=== PATIENT | female | born 1960 | race Hispanic/Latino ===

== ENCOUNTER 2016-09-24 10:25 | Emergency (ER) | payer OTHER ==
[~2016-09-24] VITALS: Ht 157.5 cm; Wt 63.5 kg
[~2016-09-24 10:25] MED LIST: ALBUTEROL0.09 MG/A1 INH; CRESTOR20 M2 PO; FIORICET 325 MG1 TAB PO; GUAIFENESIN-COD10 ML PO; GYNE-LOTRIMIN1% VAG; IMITREX50 MG PO; LAMICTAL 100MG100 MG PO; LAMOTRIGINE25 MG PO; MEDROL DOSEPAK1 PAC PO; MEDROL4 M2 PO; MULTIVITAMIN1 TAB PO; NAPROXEN500 MG PO; NASONEX0.05 MG/Ac NAS; NIFEDIPINE ER30 M2 PO; PANTOPRAZOLE SO40 MG PO; PROAIR HFA0.09 MG/Ac INH; PROAIR HFA8.5 GM INH; TESSALON PERLE100 MG PO; TOPIRAMATE25 MG PO; TRIAMCINOL0.1 %/453 TOP; TYLENOL #31 TAB PO; VICODIN5-300 PO; VITAMIN B121000 MC2 PO; ZITHROMAX Z-PA250 M1 PO; ZOFRAN ODT4 MG PO
[2016-09-24] MEDS ORDERED: TOPIRAMATE100 M2 PO (11:23)
--- NOTE | 2016-09-24 11:23 | ED INFLUENZA/URI COMPLAINT ---
History of Present Illness General Chief Complaint: Upper Respiratory Sx/Fever Stated Complaint: URI Source: patient, old records Exam Limitations: no limitations Vital Signs & Intake/Output Vital Signs & Intake/Output Vital Signs Date Time Temp Pulse Resp B/P Pulse O2 O2 Flow FiO2 Ox Delivery Rate 09/24 1120 Room Air 09/24 1032 97.9 99 18 144/87 98 Room Air Allergies Coded Allergies: lorazepam (Severe, PASSED OUT 12/19/15) Reconcile Medications Acetaminophen/Butalbital/Caf (Fioricet 325 MG-50 MG-40 MG) 1 TAB TAB 1 TAB PO Q6H PRN HEADACHE Albuterol Sulfate (Proair Hfa) 8.5 GM HFA.AER.AD 2 PUF INH Q4-6 PRN PRN DYSPNEA WITH SPACER Cyanocobalamin (Vitamin B12) (Unknown Strength) TAB (Unknown Dose) PO DAILY SUPPLEMENT (Reported) Lamotrigine 25 MG TABLET 25 MG PO PRN SLEEP (Reported) Lamotrigine (Lamictal 100MG) 100 MG TAB 1 TAB PO AT BEDTIME MENTAL HEALTH ( Reported) Methylprednisolone. (Medrol) 4 MG TAB.DS.PK 1 DP PO AD sinuses/breathing Mometasone Furoate (Nasonex) 0.05 MG/Actuation SPR 1 SPRAY CHELY PRN ALLERGIES (Reported) Multivitamin (Multiple Vitamins) 1 EACH TABLET 1 TAB PO DAILY SUPPLEMENT ( Reported) Nifedipine (Nifedipine ER) 30 MG TAB.ER.24 1 TAB PO DAILY HEART (Reported) Pantoprazole Sodium 40 MG TABLET.DR 1 TAB PO DAILY AC ACID REFLUX (Reported) Robitussin AC (Guaifenesin-Codeine Syrup) 200 MG-20 MG/10 ML LIQUID 10 ML PO Q6H PRN COUGH Rosuvastatin Calcium (Crestor) 20 MG TABLET 1 TAB PO DAILY CHOLESTEROL ( Reported) Sumatriptan Succinate (Imitrex) 50 MG TAB 1 TAB PO AD HEADACHES (Reported) Topiramate 100 MG TABLET 1 TAB PO DAILY MENTAL HEALTH (Reported) Topiramate 25 MG TABLET 1 TAB PO DAILY MENTAL HEALTH (Reported) Triage Note: 55 Y/O FEMALE C/O "I THINK I HAVE BRONCHITIS OR AN INFECTION". C/O ALL OVER BODY ACHES AND HEADACHE X 1 WEEK; COUGH WITH "WHITE" SPUTUM. AFEBRILE. Triage Nurses Notes Reviewed? yes HPI: Patient is a 55-year-old female presents complaining of cough, chills, back pain , sinus pressure. Symptoms 1 week. Positive sick contact with upper respiratory symptoms approximately 2 weeks ago. Symptoms are moderate to severe. Patient has not taken any medications for her symptoms. Cough with sputum production. Clear rhinorrhea. (NGUYEN SCHULTZ) Past History Travel History Traveled to [place] past 21 day No Medical History Any Pertinent Medical History? 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 No (NGUYEN SCHULTZ) Review of Systems Review of Systems Constitutional: Reports: chills, malaise, weakness. EENTM: Reports: nasal congestion. Denies: throat pain. Respiratory: Reports: cough, sputum production. Cardiovascular: Denies: chest pain. GI: Denies: abdominal pain, nausea, vomiting. Genitourinary: Reports: no symptoms. Musculoskeletal: Reports: back pain. Skin: Reports: no symptoms. Neurological/Psychological: Reports: headache. Hematologic/Endocrine: Reports: no symptoms. Immunologic/Allergic: Reports: no symptoms. (NGUYEN SCHULTZ) Physical Exam Physical Exam General Appearance: well developed/nourished, alert, awake Head: atraumatic, normal appearance Eyes: Bilateral: normal appearance, PERRL, EOMI. Ears, Nose, Throat: moist mucous membrane, hearing grossly normal, Tympanic normal, pharynx normal, nasal congestion Neck: normal inspection, supple, full range of motion, BILATERAL ANTERIOR CERVICAL LYMPHADENOPATHY Respiratory: normal breath sounds, chest non-tender, no respiratory distress, lungs clear Cardiovascular: regular rate/rhythm Back: normal inspection, normal range of motion Extremities: normal inspection, normal capillary refill, normal range of motion, no edema Neurologic/Psych: no motor/sensory deficits, awake, alert, oriented x 3, normal gait, normal mood/affect Skin: intact, normal color, warm/dry Lymphatic: adenopathy (BILATERAL ANTERIOR CERVICAL) Core Measures Severe Sepsis Present: No Septic Shock Present: No (NGUYEN SCHULTZ) Progress Differential Diagnosis: influenza, otitis, pneumonia, pharyngitis, sinusitis, bronchitis Plan of Care: Orders Procedure Date/time Status XRY-CHEST XRAY, PA AND LATERAL 09/24 1119 Active 1235: Results of x-ray discussed with patient. Suspect viral etiology. Likely sinusitis and upper respiratory infection given time course suspect that sinusitis is viral rather than bacterial. Will treat supportively and have patient follow up with her primary care doctor if no improvement by Tuesday. (NGUYEN SCHULTZ) Diagnostic Imaging: Viewed by Me: Radiology Read. Discussed w/RAD: Radiology Read. Radiology Impression: PATIENT: IRA LANDA PRESENT AGE: 55 PATIENT ACCOUNT NO: [id number] : 61 LOCATION: [facility] ORDERING PHYSICIAN: NGUYEN PAYAN SERVICE DATE: 09/24/16-1119 EXAM TYPE: RAD - XRY-CHEST XRAY, PA AND LATERAL EXAMINATION: XR CHEST CLINICAL INFORMATION: Cough with sputum production. Weakness. Back pain. Evaluate for pneumonia. COMPARISON: Previous chest x-rays most recent June 2015 TECHNIQUE: PA and lateral views of the chest were obtained. FINDINGS: No significant abnormality is noted involving the heart, lungs, mediastinum, bony thorax, or soft tissues. IMPRESSION: Unremarkable examination. 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 <Electronically signed in Other Vendor System> SIGNED BY: HERBERT FENG MD 09/24/16 1220 Initial ED EKG: none (NGUYEN SCHULTZ) Departure Departure Time of Disposition: 1234 Disposition: HOME OR SELF CARE Condition: Stable Clinical Impression Primary Impression: Viral upper respiratory infection Referrals: CORBIN HENRIQUEZ MD (PCP/Family) Additional Instructions: Drink plenty fluids and rest. Follow-up with your primary doctor on Tuesday if no improvement. Return to the emergency department breathing worsening, unable to stay hydrated, worsening of symptoms. Departure Forms: Customer Survey General Discharge Information Prescriptions: Current Visit Scripts Methylprednisolone. (Medrol) 1 DP PO AD #1 DP Robitussin AC (Guaifenesin-Codeine Syrup) 10 ML PO Q6H PRN COUGH #150 ML (HARIKA PAYAN,NGUYEN) PA/LIBRARY AIDE Co-Sign Statement Statement: ED Attending supervision documentation- [] I saw and evaluated the patient. I have also reviewed all the pertinent lab results and diagnostic results. I agree with the findings and the plan of care as documented in the PA's/LIBRARY AIDE's documentation. [X] I have reviewed the ED Record and agree with the PA's/LIBRARY AIDE's documentation. [] Additions or exceptions (if any) to the PAs/LIBRARY AIDE's note and plan are summarized below: [] (GARY HUERTAS,HCETOR)
[2016-09-24] MEDS ORDERED: TOPIRAMATE25 M2 PO (11:24)
--- NOTE | 2016-09-24 12:20 | RADIOLOGY REPORT ---
EXAMINATION: XR CHEST CLINICAL INFORMATION: Cough with sputum production. Weakness. Back pain. Evaluate for pneumonia. COMPARISON: Previous chest x-rays most recent June 2015 TECHNIQUE: PA and lateral views of the chest were obtained. FINDINGS: No significant abnormality is noted involving the heart, lungs, mediastinum, bony thorax, or soft tissues. IMPRESSION: Unremarkable examination.
[2016-09-24] MEDS ORDERED: MEDROL4 M2 PO (12:36)
[2016-09-24] MEDS ORDERED: GUAIFENESIN-COD10 ML PO (12:36)
[2016-09-24 12:49] VITALS: BP 145/90
== END 2016-09-24 12:51 ==
LOC: ERH 10:25
DX: J06.9 Acute upper respiratory infection, unspecified (principal)

== ENCOUNTER 2016-10-26 12:44 | Emergency (ER) | payer OTHER ==
[~2016-10-26 12:44] MED LIST changes: +TOPIRAMATE100 M2 PO; +TOPIRAMATE25 M2 PO
[2016-10-26 13:37] LABS: ABSOLUTE BASOPHIL COUNT 0 /CUMM (0.0-0.2); ABSOLUTE EOSINOPHIL COUNT 0.1 /CUMM (0.0-0.7); ABSOLUTE GRANULOCYTE CT 2.5 /CUMM (1.4-6.5); ABSOLUTE MONOCYTE COUNT 0.5 /CUMM (0.10-0.60); BASOPHIL % 0.7 % (0.0-2.0); EOSINOPHIL % 2.2 % (0-5); GRANULOCYTE % 48.6 % (42.2-75.2); HEMATOCRIT 41.6 % (37-47); MEAN CORPUSCULAR HGB 30.7 PG (27.0-31.0); MEAN CORPUSCULAR HGB CONC 33.9 G/DL (33.0-37.0); MEAN CORPUSCULAR VOLUME 90.7 FL (81.0-99.0); MEAN PLATELET VOLUME 10.6 FL (7.4-10.4); PLATELET COUNT 204 /CUMM (130-400); RBC DISTRIBUTION WIDTH 13.1 % (11.5-14.5); RED BLOOD CELL CT 4.59 /CUMM (4.20-5.40); WHITE BLOOD CELL COUNT 5.2 /CUMM (4.8-10.8)
[2016-10-26 14:14] VITALS: BP 123/76
[2016-10-26] MEDS ORDERED: AMITIZA24 MC1 PO (14:31)
[2016-10-26] MEDS ORDERED: NIFEDIPINE ER30 M1 PO (14:31)
[2016-10-26] MEDS ORDERED: CRESTOR20 M2 PO ×2 (14:33→15:17)
[2016-10-26] MEDS ORDERED: CLONAZEPAM0.5 M2 PO (14:33)
[2016-10-26] MEDS ORDERED: LAMICTAL100 M2 PO (14:35)
[2016-10-26] MEDS ORDERED: LAMICTAL25 M1 PO (14:36)
[2016-10-26] MEDS ORDERED: VITAMIN D2000 UNIT PO (14:37)
[2016-10-26] MEDS ORDERED: VITAMIN B-121000 MC3 PO (14:37)
[2016-10-26] MEDS ORDERED: TYLENOL EXTRA500 M2 PO (14:37)
[2016-10-26] MEDS ORDERED: MULTI-DAY VITA1 EACH PO (14:38)
[2016-10-26] MEDS ORDERED: FIORICET 50-301 EACH PO (15:17)
[2016-10-26] MEDS ORDERED: NIFEDIPINE ER30 M2 PO (15:17)
--- NOTE | 2016-10-26 15:17 | ED GENERAL ADULT ---
History of Present Illness General Chief Complaint: General Adult Stated Complaint: COUGH,CHEST CONGESTION,NOSE BLEED,LUMP ON ARM Source: patient, old records Exam Limitations: no limitations Vital Signs & Intake/Output Vital Signs & Intake/Output Vital Signs Date Time Temp Pulse Resp B/P Pulse O2 O2 Flow FiO2 Ox Delivery Rate 10/26 1414 96.2 78 18 123/76 98 Room Air 10/26 1324 98.0 94 20 165/72 100 Room Air 10/26 1249 97.6 100 20 180/156 99 Room Air Allergies Coded Allergies: lorazepam (Severe, PASSED OUT 12/19/15) Reconcile Medications Acetaminophen (Tylenol Extra Strength) 500 MG TABLET 2 TAB PO PRN PAIN ( Reported) Butalb/Acetaminophen/Caffeine (Fioricet 50-300-40 MG Capsule) 50 MG-300 MG-40 MG CAPSULE 1 TAB PO Q6H PRN HEADACHE Cholecalciferol (Vitamin D3) (Vitamin D) (Unknown Strength) CAPSULE (Unknown Dose) PO DAILY SUPPLEMENT (Reported) Clonazepam 0.5 MG TABLET 1 TAB PO DAILY ANXIETY (Reported) Cyanocobalamin (Vitamin B-12) (Unknown Strength) TABLET (Unknown Dose) PO DAILY SUPPLEMENT (Reported) Lamotrigine (Lamictal) 100 MG TABLET 1 TAB PO QHS MENTAL HEALTH (Reported) Lamotrigine (Lamictal) 25 MG TABLET 2 TAB PO QHS MENTAL HEALTH (Reported) Lubiprostone (Amitiza) 24 MCG CAPSULE 1 CAP PO BID GI (Reported) Multivitamin (Multi-Day Vitamins) 1 EACH TABLET 1 TAB PO DAILY SUPPLEMENT ( Reported) Nifedipine (Nifedipine ER) 30 MG TABLET.ER 1 TAB PO DAILY HEART/BP (Reported) Nifedipine (Nifedipine ER) 30 MG TAB.ER.24 1 TAB PO DAILY htn Rosuvastatin Calcium (Crestor) 20 MG TABLET 1 TAB PO DAILY CHOLESTEROL ( Reported) Rosuvastatin Calcium (Crestor) 20 MG TABLET 1 TAB PO DAILY cholesterol Topiramate 100 MG TABLET 1 TAB PO DAILY MIGRAINES (Reported) Topiramate 25 MG TABLET 1 TAB PO DAILY MIGRAINES (Reported) Triage Note: PT PRESENTS TO ER C/O OF COUGH, CHEST CONGESTION, NOSE BLEEDS ON AND OFF, AND A LUMP ON RIGHT ARM. PT ALSO C/O OF MIDSTERNAL CHEST PAIN. PT HYPERTENSIVE AT TRIAGE WITH A BP 180/156 Triage Nurses Notes Reviewed? yes HPI: 55-year-old female presents with multiple medical complaints. She complaints of headaches, intermittent nosebleeds, feeling dizzy at times, pain in her chest when taking a deep breath, mild cough. No fever no flulike illness and dyspnea on exertion, no productive with cough. Nosebleeds are mild and intermittent, both nostrils varying. She states that she has hypertension and has not been taking her medication for the last 3 weeks or her cholesterol medication for last 3 weeks as she has run out of her medicine and has yet to follow up with her electro tech Dr. Smith. There are no modifying factors, no treatment thus far. Her headache is frontal and throbbing and she has a history of headaches and is similar to her previous headaches. She denies any visual changes or neurologic symptoms of the arms or legs (NGUYEN GINACIO) Past History Travel History Traveled to [place] past 21 day No Medical History Any Pertinent Medical History? 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 No (NGUYEN IGNACIO) Review of Systems Review of Systems Constitutional: Reports: see HPI. EENTM: Reports: see HPI. Respiratory: Reports: no symptoms. Cardiovascular: Reports: see HPI. GI: Reports: no symptoms. Genitourinary: Reports: no symptoms. Musculoskeletal: Reports: no symptoms. Skin: Reports: no symptoms. Neurological/Psychological: Reports: see HPI. Hematologic/Endocrine: Reports: no symptoms. Immunologic/Allergic: Reports: no symptoms. All Other Systems: Reviewed and Negative (NGUYEN IGNACIO) Physical Exam Physical Exam General Appearance: well developed/nourished Comments: Well-developed well-nourished person in no acute distress HEENT: Normal EENT exam, extraocular motion intact, no nystagmus. Pupils equally round and reactive to light. Nose is atraumatic. Tiny amount of dry blood noted into the right nares anterior septal region. External auditory canal and Tympanic membranes clear. Pharynx normal. No swelling or edema. Neck: Supple, no lymphadenopathy, normal range of motion without pain or tenderness Back: Nontender, no CVA tenderness. Full range of motion Cardiovascular: Regular rate and rhythms no murmurs, normal JVP Respiratory: Chest nontender. No respiratory distress. Breath sounds clear to auscultation bilaterally Abdomen: Soft, nontender nondistended, no appreciable organomegaly. Normal bowel sounds. No ascites Extremity: No edema, no calf tenderness to palpation, normal and equal pulses. Neuro: Alert oriented x3, motor sensory normal, cranial nerves II through XII grossly intact. Skin: No appreciable rash on exposed skin, skin is warm and dry. Psych: Mood and affect is normal, memory and judgment is normal. Core Measures ACS in differential dx? Yes CVA/TIA Diagnosis: No Severe Sepsis Present: No Septic Shock Present: No (NGUYEN IGNACIO) Progress Differential Diagnoses I considered the following diagnoses in my evaluation of the patient: Malignant hypertension, CVA, acute coronary syndrome, TIA, renal failure, subarachnoid hemorrhage, Plan of Care: Orders Procedure Date/time Status Add-on Test (ER Only) 10/26 1358 Active TROPONIN LEVEL 10/26 1326 Complete COMPREHENSIVE METABOLIC PANEL 10/26 1323 Complete CBC WITHOUT DIFFERENTIAL 10/26 1323 Complete EKG 10/26 1250 Active Laboratory Tests 10/26/16 1326: Anion Gap 12, Estimated GFR > 60, BUN/Creatinine Ratio 11.7, Glucose 92, Calcium 9.7, Total Bilirubin 0.7, AST 21, ALT 29, Alkaline Phosphatase 72, Troponin I < 0.01, Total Protein 7.4, Albumin 4.4, Globulin 3.0, Albumin/Globulin Ratio 1.5, CBC w Diff NO MAN DIFF REQ, RBC 4.59, MCV 90.7, MCH 30.7, RDW 13.1, MPV 10.6 H, Gran % 48.6, Lymphocytes % 38.3, Monocytes % 10.2 H, Eosinophils % 2.2, Basophils % 0.7, Absolute Granulocytes 2.5, Absolute Lymphocytes 2.0, Absolute Monocytes 0.5, Absolute Eosinophils 0.1, Absolute Basophils 0, PUBS MCHC 33.9 Initial ED EKG: NSR, rate (65), no ST T wave changes Prior EKG: changed Rhythm Strip: normal sinus rhythm Comments: Patient's blood pressure lowered on its own while she is waiting for test results. She has no active nasal bleeding. I discussed with her that her symptoms could be related to her uncontrolled hypertension. She was given refill of her medications and asked to follow-up with her primary care doctor or electro tech. She is given furosemide for her headaches (NGUYEN IGNACIO) Departure Departure Disposition: HOME OR SELF CARE Condition: Stable Clinical Impression Primary Impression: Hypertension Qualifiers: Hypertension type: essential hypertension Qualified Code: I10 - Essential (primary) hypertension Secondary Impressions: Headache Qualifiers: Headache type: unspecified Headache chronicity pattern: acute headache Intractability: not intractable Qualified Code: R51 - Headache Referrals: CORBIN HENRIQUEZ MD (PCP/Family) Additional Instructions: Follow-up with your electro tech for further evaluation of your blood pressure as it is elevated today. Please continue take your normal blood pressure medication and other medications as directed. Take Fioricet as needed for headaches Departure Forms: Customer Survey General Discharge Information Prescriptions: Current Visit Scripts Nifedipine (Nifedipine ER) 1 TAB PO DAILY #30 TAB Rosuvastatin Calcium (Crestor) 1 TAB PO DAILY #30 TAB Butalb/Acetaminophen/Caffeine (Fioricet 50-300-40 MG Capsule) 1 TAB PO Q6H PRN HEADACHE #20 (NGUYEN IGNACIO) PA/RN SPINE Co-Sign Statement Statement: ED Attending supervision documentation- [] I saw and evaluated the patient. I have also reviewed all the pertinent lab results and diagnostic results. I agree with the findings and the plan of care as documented in the PA's/RN SPINE's documentation. x I have reviewed the ED Record and agree with the PA's/RN SPINE's documentation. [] Additions or exceptions (if any) to the PAs/RN SPINE's note and plan are summarized below: [] (CARLOS CHERRY MD) Critical Care Note Critical Care Note Critical Care Time: non-applicable (NGUYEN IGNACIO)
== END 2016-10-26 15:27 ==
LOC: ERH 12:44
PROVIDERS: Emergency Medicine
DX: I10 Essential (primary) hypertension (principal); R51 Headache
CPT/HCPCS: 93005; 93010

== ENCOUNTER 2016-12-19 23:05 | Emergency (ER) | payer OTHER ==
[~2016-12-19] VITALS: Ht 157.5 cm; Wt 66.2 kg
[~2016-12-19 23:05] MED LIST changes: +AMITIZA24 MC1 PO; +CLONAZEPAM0.5 M2 PO; +FIORICET 50-301 EACH PO; +LAMICTAL100 M2 PO; +LAMICTAL25 M1 PO; +MULTI-DAY VITA1 EACH PO; +NIFEDIPINE ER30 M1 PO; +TYLENOL EXTRA500 M2 PO; +VITAMIN B-121000 MC3 PO; +VITAMIN D2000 UNIT PO
[2016-12-20] MEDS ORDERED: DELTASONE20 MG PO (01:00)
[2016-12-20] MEDS ORDERED: PROVENTIL HFA6.7 GM INH (01:00)
[2016-12-20] MEDS ORDERED: BROMFED DM COU118 M1 PO (01:00)
[2016-12-20] MEDS ORDERED: ZITHROMAX250 M2 PO (01:00)
--- NOTE | 2016-12-20 01:02 | ED GENERAL ADULT ---
History of Present Illness General Chief Complaint: General Adult Stated Complaint: COUGHING UP BLOOD PER PT,LOZA,HEAD CONGESTION Source: patient Exam Limitations: no limitations Vital Signs & Intake/Output Vital Signs & Intake/Output Vital Signs Date Time Temp Pulse Resp B/P Pulse O2 O2 Flow FiO2 Ox Delivery Rate 12/20 0602 96.7 94 20 116/80 96 Room Air 12/20 0127 98 12/19 2317 97.9 90 18 139/85 98 Room Air ED Intake and Output 12/20 0000 12/19 1200 Intake Total Output Total Balance Patient 146 lb Weight Allergies Coded Allergies: lorazepam (Severe, PASSED OUT 12/19/15) Triage Note: PT TO TRIAGE WITH C/O FEVER, CONGESTION, COUGH, CHILLS, HEADACHE x1WEEK. PT AFEBRILE IN TRIAGE, VSS. Triage Nurses Notes Reviewed? yes Onset: Abrupt Duration: week(s):, constant, continues in ED Timing: recent history Injury Environment: home No Modifying Factors: none HPI: 56-year-old female comes into emergency room for further evaluation of cough, general weakness, mucus production, runny nose, congestion, chest heaviness. Symptoms may going on for over a week. Patient was seen at [facility] as well as the urgent care center reports that they did not do anything for her. They did not give her any medications to go home with. Nothing seems to make the symptoms better. Patient reports that she discontinued taking her medication for depression because she was just not feeling well. No SI HI. (SUAD FERRER) Reconcile Medications Acetaminophen (Tylenol Extra Strength) 500 MG TABLET 2 TAB PO PRN PAIN ( Reported) Albuterol Sulfate (Proventil Hfa) 90 MCG HFA.AER.AD 2 PUF INH Q4 SOB Azithromycin (Zithromax) 250 MG TABLET 1 DP PO AD bronchitis 2 the first day followed by 1 for days 2-5 Brompheniramine/Pseudoephed/Dm (Bromfed Dm Cough Syrup) 2 MG-30 MG-10 MG/5 ML SYRUP 5-10 ML PO Q4-6 PRN PRN COUGH Butalb/Acetaminophen/Caffeine (Fioricet 50-300-40 MG Capsule) 50 MG-300 MG-40 MG CAPSULE 1 TAB PO Q6H PRN HEADACHE Cholecalciferol (Vitamin D3) (Vitamin D) (Unknown Strength) CAPSULE (Unknown Dose) PO DAILY SUPPLEMENT (Reported) Clonazepam 0.5 MG TABLET 1 TAB PO DAILY ANXIETY (Reported) Cyanocobalamin (Vitamin B-12) (Unknown Strength) TABLET (Unknown Dose) PO DAILY SUPPLEMENT (Reported) Lamotrigine (Lamictal) 100 MG TABLET 1 TAB PO QHS MENTAL HEALTH (Reported) Lamotrigine (Lamictal) 25 MG TABLET 2 TAB PO QHS MENTAL HEALTH (Reported) Lubiprostone (Amitiza) 24 MCG CAPSULE 1 CAP PO BID GI (Reported) Multivitamin (Multi-Day Vitamins) 1 EACH TABLET 1 TAB PO DAILY SUPPLEMENT ( Reported) Nifedipine (Nifedipine ER) 30 MG TABLET.ER 1 TAB PO DAILY HEART/BP (Reported) Nifedipine (Nifedipine ER) 30 MG TAB.ER.24 1 TAB PO DAILY htn Prednisone (Deltasone) 20 MG TABLET 1 TAB PO BID BRONCHITIS Rosuvastatin Calcium (Crestor) 20 MG TABLET 1 TAB PO DAILY CHOLESTEROL ( Reported) Rosuvastatin Calcium (Crestor) 20 MG TABLET 1 TAB PO DAILY cholesterol Topiramate 100 MG TABLET 1 TAB PO DAILY MIGRAINES (Reported) Topiramate 25 MG TABLET 1 TAB PO DAILY MIGRAINES (Reported) (DAVID HUERTAS,CROW Ochoa) Past History Travel History Traveled to [place] past 21 day No Medical History Any Pertinent Medical History? see below for history Neurological: NONE EENT: NONE Cardiovascular: hypertension, hyperlipidemia Respiratory: asthma Gastrointestinal: GERD Hepatic: NONE Renal: NONE Musculoskeletal: NONE Psychiatric: depression Endocrine: NONE Blood Disorders: NONE Cancer(s): NONE PREDATORY HUNTER/Reproductive: NONE Other Medical Hx: anemia Surgical History Surgical History: cholecystectomy Psychosocial History What is your primary language Kinyarwanda Tobacco Use: Never used Family History Hx Contributory? No (SUAD FERRER) Review of Systems Review of Systems Constitutional: Reports: see HPI. EENTM: Reports: see HPI. Respiratory: Reports: see HPI. Cardiovascular: Reports: see HPI. GI: Reports: no symptoms. Genitourinary: Reports: no symptoms. Musculoskeletal: Reports: no symptoms. Skin: Reports: no symptoms. Neurological/Psychological: Reports: no symptoms. Hematologic/Endocrine: Reports: no symptoms. Immunologic/Allergic: Reports: no symptoms. All Other Systems: Reviewed and Negative (SUAD FERRER) Physical Exam Physical Exam General Appearance: well developed/nourished, no apparent distress, mild distress Head: atraumatic, normal appearance Eyes: Bilateral: normal appearance. Ears, Nose, Throat: normal pharynx, normal ENT inspection, hearing grossly normal Neck: normal inspection Respiratory: normal breath sounds, no respiratory distress Cardiovascular: regular rate/rhythm Back: normal inspection Extremities: normal inspection, normal range of motion Neurologic/Psych: awake, alert, oriented x 3, normal gait, normal mood/affect Skin: intact, normal color Core Measures ACS in differential dx? Yes CVA/TIA Diagnosis: No Severe Sepsis Present: No Septic Shock Present: No (NOELLE PAYAN,SUAD) Progress Differential Diagnoses I considered the following diagnoses in my evaluation of the patient: Bronchitis, pneumonia, PE, ME, dehydration, anemia, Plan of Care: Orders Procedure Date/time Status TROPONIN LEVEL 12/20 54 Complete D-DIMER 12/20 54 Complete COMPREHENSIVE METABOLIC PANEL 12/20 54 Complete CBC WITHOUT DIFFERENTIAL 12/20 54 Complete EKG 12/20 54 Active Laboratory Tests 12/20/16 0134: Anion Gap 12, Estimated GFR > 60, BUN/Creatinine Ratio 16.7, Glucose 100 H, Calcium 9.4, Total Bilirubin 0.7, AST 36, ALT 45, Alkaline Phosphatase 87, Troponin I < 0.01, Total Protein 7.0, Albumin 3.9, Globulin 3.1, Albumin/ Globulin Ratio 1.3, D-Dimer 486 H, CBC w Diff NO MAN DIFF REQ, RBC 4.50, MCV 90.2, MCH 30.4, RDW 12.8, MPV 10.1, Gran % 53.5, Lymphocytes % 32.4, Monocytes % 12.9 H, Eosinophils % 0.5, Basophils % 0.7, Absolute Granulocytes 3.5, Absolute Lymphocytes 2.1, Absolute Monocytes 0.8 H, Absolute Eosinophils 0, Absolute Basophils 0, PUBS MCHC 33.7 Diagnostic Imaging: Viewed by Me: Radiology Read. Discussed w/RAD: Radiology Read. Initial ED EKG: see dr morocho note Hand-Off Endorsed To: DAVID HUERTAS,CROW Ochoa Endorsed Time: 100 Pending: EKG, labs (SUAD FERRER) Differential Diagnoses I considered the following diagnoses in my evaluation of the patient: Radiology Impression: CT ANGIO... NO PE... LIKELY ATYPICAL PNEUMONIA... FULL REPORT BELOW. Comments: PATIENT: IRA LANDA PRESENT AGE: 56 PATIENT ACCOUNT NO: [id number] : 61 LOCATION: [facility] ORDERING PHYSICIAN: CROW HERNANDEZ MD SERVICE DATE: 12/20/16 EXAM TYPE: CAT - CTA CHEST-PULMONARY EMBOLISM EXAMINATION: CT ANGIOGRAM OF THE CHEST WITH AND WITHOUT CONTRAST (CT PULMONARY ANGIOGRAM FOR PE) CLINICAL INFORMATION: Elevated D-dimer. Hemoptysis. COMPARISON: Chest radiograph 12/19/2016. TECHNIQUE: Prior to contrast administration, noncontrast localization images were obtained. Subsequently, multidetector volumetric imaging was performed from the thoracic inlet to below the diaphragms following the administration of 95 mL Optiray 320 intravenous contrast. No contrast reaction reported. Sagittal, coronal, and MIP oblique sagittal reformatted images were obtained on the CT workstation, uploaded to PACS, and reviewed. Total exam dose-length product 347.42 mGy-cm. FINDINGS: The timing of the contrast injection provides adequate opacification of the pulmonary arterial vasculature. There is no central luminal filling defect to suggest the presence of an acute pulmonary embolism. There are a few ill-defined tree-in-bud airspace opacities within the right upper and lower lobes. Ill-defined perihilar airspace disease is also visualized within the left lower lobe. There is bibasilar subsegmental atelectasis. No pleural effusion or pneumothorax. The heart is normal and the aortic arch apex is normal. The origins of the major aortic branches are patent. The trachea and major airways are patent. There are symmetrically prominent bilateral hilar lymph nodes. The visualized portions of the thoracic outlet including the thyroid gland are unremarkable. There is no acute osseous finding. Limited visualization of the upper abdomen reveals no abnormal finding. IMPRESSION: There is no central luminal filling defect to suggest the presence of an acute pulmonary embolism. There are centrilobular groundglass opacities involving both lungs as well as prominent albeit nonspecific hilar lymph nodes. These findings may represent a manifestation of an atypical pneumonia, hypersensitivity pneumonitis, or obliterative bronchiolitis. Other inflammatory cannot be excluded on the basis of this examination. VTE: negative DICTATED BY: MARCELINO HUERTAS,ANIBAL Schmidt DATE/TIME DICTATED:12/20/16437 ELECTRONIC COMMERCE SPECIALIST:URBAN DATE/TIME TRANSCRIBED:12/20/16437 CONFIDENTIAL, DO NOT COPY WITHOUT APPROPRIATE AUTHORIZATION. <Electronically signed in Other Vendor System> SIGNED BY: MARCELINO HUERTAS,ANIBAL Schmidt 12/20 6747 (DAVID HUERTAS,CROW Ochoa) Departure Departure Disposition: HOME OR SELF CARE Condition: Stable Clinical Impression Primary Impression: Bronchitis Referrals: CORBIN HENRIQUEZ MD (PCP/Family) Additional Instructions: Taking Z-Keny, prednisone, albuterol, and Bromfed as prescribed. Follow-up with your primary care doctor. Return if any concerns worsening symptoms. Please go over all results of today's visit with your primary care doctor. Contact your primary care doctor to let them know you were here in the emergency room. There may be nonspecific findings which may not be related to your visit today here in the emergency room but may require further evaluation and chronic monitoring by your primary care doctor. If you had a laceration today the chance of foreign body always remains. You should follow-up with your primary care doctor for recheck in 3-5 days for a wound check. If you had an x-ray done there is a chance that a fracture could have been missed on initial read and you should follow-up with your primary care doctor for repeat x-rays if symptoms persist. If your blood pressure was elevated here in the emergency room please have rechecked by her primary care doctor within the next 48 hours by your primary care doctor. If you were prescribed a narcotic here in the emergency room or any type of controlled substances you're not allowed to drive while taking this medication or operate any type of heavy machinery. Narcotics can make you feel lightheaded dizziness nausea and can cause constipation. You may need to milk pickup truck driver a stool softener. Thank you for choosing [facility] emergency room. Please return to the emergency room immediately if you have any other concerns worsening of symptoms. Departure Forms: Customer Survey General Discharge Information Prescriptions: Current Visit Scripts Azithromycin (Zithromax) 1 DP PO AD #6 TAB 2 the first day followed by 1 for days 2-5 Prednisone (Deltasone) 1 TAB PO BID #10 MG Albuterol Sulfate (Proventil Hfa) 2 PUF INH Q4 #1 INHAL Brompheniramine/Pseudoephed/Dm (Bromfed Dm Cough Syrup) 5-10 ML PO Q4-6 PRN PRN COUGH #120 ML (SUAD FERRER) Departure Comments 12/20/16, 6:00AM... pt resting comfortably... discussed ct scan results... pt to take azithromycin which should cover atypical infection... encouraged close follow up. PA/ELECTRICIAN RECTIFIER MAINTENANCE Co-Sign Statement Statement: ED Attending supervision documentation- [X] I saw and evaluated the patient. I have also reviewed all the pertinent lab results and diagnostic results. I agree with the findings and the plan of care as documented in the PA's/ELECTRICIAN RECTIFIER MAINTENANCE's documentation. pt well appearing, stable on room air, sleeping comfortably at discharge. [] I have reviewed the ED Record and agree with the PA's/ELECTRICIAN RECTIFIER MAINTENANCE's documentation. [] Additions or exceptions (if any) to the PAs/ELECTRICIAN RECTIFIER MAINTENANCE's note and plan are summarized below: [] (DAVID HUERTAS,CROW Ochoa) Critical Care Note Critical Care Note Critical Care Time: non-applicable (SUAD FERRER)
--- NOTE | 2016-12-20 01:43 | RADIOLOGY REPORT ---
EXAMINATION: XR CHEST CLINICAL INFORMATION: Hemoptysis. COMPARISON: Chest radiograph 09/24/2016. TECHNIQUE: 2 views of the chest were obtained. FINDINGS: There is no focal consolidative disease, pleural effusion, or pneumothorax. The cardiac silhouette and upper mediastinal contours are normal. No acute osseous finding. IMPRESSION: Normal chest radiograph.
[2016-12-20 01:44] LABS: ABSOLUTE BASOPHIL COUNT 0 /CUMM (0.0-0.2); ABSOLUTE EOSINOPHIL COUNT 0 /CUMM (0.0-0.7); ABSOLUTE GRANULOCYTE CT 3.5 /CUMM (1.4-6.5); ABSOLUTE LYMPH COUNT 2.1 /CUMM (1.2-3.4); ABSOLUTE MONOCYTE COUNT 0.8 /CUMM (0.10-0.60); BASOPHIL % 0.7 % (0.0-2.0); EOSINOPHIL % 0.5 % (0-5); GRANULOCYTE % 53.5 % (42.2-75.2); HEMATOCRIT 40.6 % (37-47); MEAN CORPUSCULAR HGB 30.4 PG (27.0-31.0); MEAN CORPUSCULAR HGB CONC 33.7 G/DL (33.0-37.0); MEAN CORPUSCULAR VOLUME 90.2 FL (81.0-99.0); MEAN PLATELET VOLUME 10.1 FL (7.4-10.4); PLATELET COUNT 183 /CUMM (130-400); RBC DISTRIBUTION WIDTH 12.8 % (11.5-14.5); WHITE BLOOD CELL COUNT 6.5 /CUMM (4.8-10.8)
--- NOTE | 2016-12-20 04:51 | CT SCAN REPORT ---
EXAMINATION: CT ANGIOGRAM OF THE CHEST WITH AND WITHOUT CONTRAST (CT PULMONARY ANGIOGRAM FOR PE) CLINICAL INFORMATION: Elevated D-dimer. Hemoptysis. COMPARISON: Chest radiograph 12/19/2016. TECHNIQUE: Prior to contrast administration, noncontrast localization images were obtained. Subsequently, multidetector volumetric imaging was performed from the thoracic inlet to below the diaphragms following the administration of 95 mL Optiray 320 intravenous contrast. No contrast reaction reported. Sagittal, coronal, and MIP oblique sagittal reformatted images were obtained on the CT workstation, uploaded to PACS, and reviewed. Total exam dose-length product 347.42 mGy-cm. FINDINGS: The timing of the contrast injection provides adequate opacification of the pulmonary arterial vasculature. There is no central luminal filling defect to suggest the presence of an acute pulmonary embolism. There are a few ill-defined tree-in-bud airspace opacities within the right upper and lower lobes. Ill-defined perihilar airspace disease is also visualized within the left lower lobe. There is bibasilar subsegmental atelectasis. No pleural effusion or pneumothorax. The heart is normal and the aortic arch apex is normal. The origins of the major aortic branches are patent. The trachea and major airways are patent. There are symmetrically prominent bilateral hilar lymph nodes. The visualized portions of the thoracic outlet including the thyroid gland are unremarkable. There is no acute osseous finding. Limited visualization of the upper abdomen reveals no abnormal finding. IMPRESSION: There is no central luminal filling defect to suggest the presence of an acute pulmonary embolism. There are centrilobular groundglass opacities involving both lungs as well as prominent albeit nonspecific hilar lymph nodes. These findings may represent a manifestation of an atypical pneumonia, hypersensitivity pneumonitis, or obliterative bronchiolitis. Other inflammatory cannot be excluded on the basis of this examination. VTE: negative
[2016-12-20 06:02] VITALS: BP 116/80
== END 2016-12-20 06:18 ==
LOC: ERH 23:05
PROVIDERS: Physician Assistant Medical
DX: J40 Bronchitis, not specified as acute or chronic (principal); R07.89 Other chest pain
CPT/HCPCS: 1263; 1395; 93005; 93010

== ENCOUNTER 2017-10-01 20:43 | Emergency (ER) | payer OTHER ==
[~2017-10-01 20:43] MED LIST changes: +BROMFED DM COU118 M1 PO; +DELTASONE20 MG PO; +PROVENTIL HFA6.7 GM INH; +ZITHROMAX250 M2 PO
--- NOTE | 2017-10-01 21:39 | ED GI/GU/ABDOMINAL COMPLAINT ---
History of Present Illness General Chief Complaint: Abdominal Pain/Flank Pain Stated Complaint: ABD PAIN AND PAIN IN BACK Source: patient Exam Limitations: no limitations Vital Signs & Intake/Output Vital Signs & Intake/Output Vital Signs Date Time Temp Pulse Resp B/P B/P Pulse O2 O2 Flow FiO2 Mean Ox Delivery Rate 10/01 2054 97.0 73 20 137/88 99 Allergies Coded Allergies: lorazepam (Severe, PASSED OUT 12/19/15) Reconcile Medications Acetaminophen (Tylenol Extra Strength) 500 MG TABLET 2 TAB PO PRN PAIN ( Reported) Albuterol Sulfate (Proventil Hfa) 90 MCG HFA.AER.AD 2 PUF INH Q4 SOB Azithromycin (Zithromax) 250 MG TABLET 1 DP PO AD bronchitis 2 the first day followed by 1 for days 2-5 Brompheniramine/Pseudoephed/Dm (Bromfed Dm Cough Syrup) 2 MG-30 MG-10 MG/5 ML SYRUP 5-10 ML PO Q4-6 PRN PRN COUGH Butalb/Acetaminophen/Caffeine (Fioricet 50-300-40 MG Capsule) 50 MG-300 MG-40 MG CAPSULE 1 TAB PO Q6H PRN HEADACHE Cholecalciferol (Vitamin D3) (Vitamin D) (Unknown Strength) CAPSULE (Unknown Dose) PO DAILY SUPPLEMENT (Reported) Clonazepam 0.5 MG TABLET 1 TAB PO DAILY ANXIETY (Reported) Cyanocobalamin (Vitamin B-12) (Unknown Strength) TABLET (Unknown Dose) PO DAILY SUPPLEMENT (Reported) Lamotrigine (Lamictal) 100 MG TABLET 1 TAB PO QHS MENTAL HEALTH (Reported) Lamotrigine (Lamictal) 25 MG TABLET 2 TAB PO QHS MENTAL HEALTH (Reported) Lubiprostone (Amitiza) 24 MCG CAPSULE 1 CAP PO BID GI (Reported) Methocarbamol (Robaxin-750) 750 MG TABLET 1 TAB PO TID PRN PAIN Multivitamin (Multi-Day Vitamins) 1 EACH TABLET 1 TAB PO DAILY SUPPLEMENT ( Reported) Naproxen (Naprosyn) 500 MG TABLET 1 TAB PO BID PRN PAIN Nifedipine (Nifedipine ER) 30 MG TABLET.ER 1 TAB PO DAILY HEART/BP (Reported) Nifedipine (Nifedipine ER) 30 MG TAB.ER.24 1 TAB PO DAILY htn Prednisone (Deltasone) 20 MG TABLET 1 TAB PO BID BRONCHITIS Rosuvastatin Calcium (Crestor) 20 MG TABLET 1 TAB PO DAILY CHOLESTEROL ( Reported) Rosuvastatin Calcium (Crestor) 20 MG TABLET 1 TAB PO DAILY cholesterol Topiramate 100 MG TABLET 1 TAB PO DAILY MIGRAINES (Reported) Topiramate 25 MG TABLET 1 TAB PO DAILY MIGRAINES (Reported) Triage Note: PER PT PAIN TO RT FLANK X 3 DAYS, ALSO INTO BUTTOCK, FREQ IN URIANTION NO DISCHARGE Triage Nurses Notes Reviewed? yes LMP (ages 10-50): unknown ? n Is pt currently ? No Onset: Abrupt Duration: day(s): (5), constant, continues in ED Timing: single episode today Quality/Severity: cramping Severity Numbers: 8 Location: right flank Radiation: back, rt butt Activities at Onset: none Prior Abdominal Problems: none Past Sexual History: Unobtainable at this time No Modifying Factors: none Modifying Factors: Worsens With: movement, palpation. Associated Symptoms: abdominal pain, lower back pain, urinary frequency HPI: 56-year-old female past medical history hypertension hyperlipidemia GERD presents for evaluation of pain in her right flank radiating to the right groin and right back. Pain has been going on for about 5 days getting worse. The pain starts in the right flank and radiates to both the right back and right groin. She also reports some radiation to her right upper buttock. She describes the pain as a cramping sensation 8 out of 10. It is worse with movement or touching the area. She also reports associated urinary frequency and nausea. No vomiting diarrhea fever hematuria dysuria or vaginal discharge numbness tingling or bowel or bladder dysfunction no fever. No chest pain or shortness of breath. She does not taking any medicine for this. No previous history of kidney stones or similar symptoms. No recent abdominal surgeries. (Manjinder Meza) Past History Travel History Traveled to [place] past 21 day No Medical History Any Pertinent Medical History? see below for history Neurological: NONE EENT: NONE Cardiovascular: hypertension, hyperlipidemia Respiratory: asthma Gastrointestinal: GERD Hepatic: NONE Renal: NONE Musculoskeletal: NONE Psychiatric: depression Endocrine: NONE Blood Disorders: NONE Cancer(s): NONE FINISH SANDER/Reproductive: NONE Other Medical Hx: anemia Surgical History Surgical History: cholecystectomy Psychosocial History What is your primary language Malian Tobacco Use: Never used Family History Hx Contributory? No (Manjinder Meza) Review of Systems Review of Systems Constitutional: Reports: no symptoms. EENTM: Reports: no symptoms. Respiratory: Reports: no symptoms. Cardiovascular: Reports: no symptoms. GI: Reports: see HPI, abdominal pain. Genitourinary: Reports: frequency. Musculoskeletal: Reports: see HPI, back pain, muscle pain, muscle stiffness. Skin: Reports: no symptoms. Neurological/Psychological: Reports: no symptoms. Hematologic/Endocrine: Reports: no symptoms. Immunologic/Allergic: Reports: no symptoms. All Other Systems: Reviewed and Negative (Manjinder Meza) Physical Exam Physical Exam General Appearance: well developed/nourished, no apparent distress, alert, awake Head: atraumatic, normal appearance Eyes: Bilateral: normal appearance, PERRL, EOMI. Ears, Nose, Throat, Mouth: hearing grossly normal, moist mucous membrane Neck: normal inspection, supple, full range of motion, no midline tenderness Respiratory: normal breath sounds, chest non-tender, no respiratory distress, lungs clear Cardiovascular: regular rate/rhythm, normal peripheral pulses Peripheral Pulses: 2+ radial (R), 2+ radial (L) Gastrointestinal: normal bowel sounds, soft, no organomegaly, tenderness (rt flank, rlq) Back: normal inspection, normal range of motion, right-sided lumbar paraspinous muscles tender to palpation. No midline pain. No CVA tenderness, pain increased with range of motion Extremities: normal range of motion, straight leg raised (negative) Neurologic/Psych: no motor/sensory deficits, awake, alert, oriented x 3 Skin: intact, normal color, warm/dry Core Measures ACS in differential dx? No Sepsis Present: No Sepsis Focused Exam Completed? No (Manjinedr Meza) Progress Differential Diagnosis: appendicitis, biliary colic, bowel obstruction, cholecystitis, diverticulitis, kidney stone, ovarian cyst, UTI/pyelo Plan of Care: Orders Procedure Date/time Status C-REACTIVE PROTEIN 10/01 2137 Complete COMPREHENSIVE METABOLIC PANEL 10/01 2137 Complete CBC WITHOUT DIFFERENTIAL 10/01 2137 Complete URINALYSIS 10/01 2051 Complete Laboratory Tests 10/01/172200: Anion Gap 13, Estimated GFR > 60, BUN/Creatinine Ratio 20.0, Glucose 95, Calcium 8.8, Total Bilirubin 0.2, AST 21, ALT 23, Alkaline Phosphatase 68, C-Reactive Prot, Quant 0.6, Total Protein 6.7, Albumin 3.8, Globulin 2.9, Albumin/Globulin Ratio 1.3, CBC w Diff NO MAN DIFF REQ, RBC 4.12 L, MCV 89.4, MCH 30.3, MCHC 33.9, RDW 13.2, MPV 9.6, Gran % 52.2, Lymphocytes % 35.8, Monocytes % 8.9, Eosinophils % 2.5, Basophils % 0.6, Absolute Granulocytes 3.2, Absolute Lymphocytes 2.2, Absolute Monocytes 0.5, Absolute Eosinophils 0.1, Absolute Basophils 0 10/01/172058: Urine Color YEL, Urine Clarity CLEAR, Urine pH 6.0, Ur Specific [place] 1.025, Urine Protein NEG, Urine Ketones NEG, Urine Nitrite NEG, Urine Bilirubin NEG, Urine Urobilinogen 0.2, Ur Leukocyte Esterase NEG, Ur Microscopic SEDIMENT EXAMINED, Urine RBC 1-3, Urine WBC RARE, Ur Epithelial Cells RARE, Urine Bacteria FEW H, Urine Mucus FEW, Urine Hemoglobin SMALL H, Urine Glucose NEG Patient seen and evaluated. Her urine is not showing any signs of infection. Blood work does not show any acute changes. CT scan is clear. Pain is worse with range of motion as well as palpation. The pain radiates into her right buttock. Upon further questioning she does report heavy lifting several days before the pain started. Suspect this may be musculoskeletal in nature. She has no chest pain or shortness of breath no history of diabetes. Patient will be treated with naproxen and Robaxin. Advised rest avoid heavy lifting bending says physical activity. Follow-up with primary care doctor. Discussed return precautions in detail patient is nontoxic-appearing and agrees the plan. Diagnostic Imaging: Viewed by Me: CT Scan. Discussed w/RAD: CT Scan. Radiology Impression: PATIENT: IRA LANDA PRESENT AGE: 56 PATIENT ACCOUNT NO: [id number] : 61 LOCATION: [facility] ORDERING PHYSICIAN: Manjinder PAYAN SERVICE DATE: 10/01/17 EXAM TYPE: CAT - CT ABD & PELVIS W/O IV CONTRAS EXAMINATION: CT ABDOMEN AND PELVIS WITHOUT CONTRAST CLINICAL INFORMATION: Right lower quadrant pain COMPARISON: CT 2008 TECHNIQUE: Multidetector volumetric imaging was performed from the superior aspect of the liver through the pubic symphysis. Sagittal and coronal reformatted images were obtained on the technologist's workstation. DLP: 327 mGy -cm FINDINGS: LUNG BASES: The visualized lung bases are unremarkable. LIVER, GALLBLADDER, AND BILIARY TREE: Liver is grossly unremarkable. Punctate calcifications are noted within segment 7 of the liver, unchanged compared to 2009. The gallbladder is surgically absent. PANCREAS: Unremarkable. SPLEEN: A single splenic calcifications is present. ADRENAL GLANDS: Unremarkable. KIDNEYS AND URETERS: The kidneys are normal in size, shape, and attenuation. No hydronephrosis, hydroureter, or calculi seen. No perinephric stranding. BLADDER: Unremarkable. GASTROINTESTINAL TRACT: The small and large bowel are unremarkable. The appendix is unremarkable. ABDOMINAL WALL: No significant hernia is appreciated. LYMPH NODES: There are a few scattered normally sized mesenteric lymph nodes. VASCULAR: Grossly unremarkable on this noncontrast study. PELVIC VISCERA: The uterus and ovaries appear within normal range. No free fluid within the pelvis. OSSEOUS STRUCTURES: Unremarkable. IMPRESSION: 1. Limited noncontrast study. 2. Normal appendix. 3. No CT evidence for acute renal obstruction. 4. No acute intra-abdominal or pelvic findings. 5. Status post cholecystectomy. DICTATED BY: Charisma Rapp MD DATE/TIME DICTATED:10/01/172205 REFUSE COLLECTOR SUPERVISOR:URBAN DATE/TIME TRANSCRIBED:10/01/172205 CONFIDENTIAL, DO NOT COPY WITHOUT APPROPRIATE AUTHORIZATION. Initial ED EKG: none (Manjinder Meza) Departure Departure Disposition: HOME OR SELF CARE Condition: Stable Clinical Impression Primary Impression: Right flank pain Secondary Impressions: Low back pain Qualifiers: Chronicity: acute Back pain laterality: right Sciatica presence: with sciatica Sciatica laterality: sciatica of right side Qualified Code: M54.41 - Lumbago with sciatica, right side Referrals: Unknown (PCP/Family) Additional Instructions: Rest, avoid heavy lifting bending or excessive physical activity. Use naproxen 500 mg every 12 hours with food as needed for pain. Robaxin as a muscle relaxer that can also be used every 8 hours with food as needed for pain. This may cause drowsiness. Make a follow-up with YOUr primary care doctor for this week. Monitor symptoms and return with any concerns. Departure Forms: Customer Survey General Discharge Information Prescriptions: Current Visit Scripts Naproxen (Naprosyn) 1 TAB PO BID PRN PAIN #30 TAB Methocarbamol (Robaxin-750) 1 TAB PO TID PRN PAIN #30 TAB (Manjinder Meza) PA/ACCOUNTS RECEIVABLE COORDINATOR Co-Sign Statement Statement: ED Attending supervision documentation- [] I saw and evaluated the patient. I have also reviewed all the pertinent lab results and diagnostic results. I agree with the findings and the plan of care as documented in the PA's/ACCOUNTS RECEIVABLE COORDINATOR's documentation. [X] I have reviewed the ED Record and agree with the PA's/ACCOUNTS RECEIVABLE COORDINATOR's documentation. [] Additions or exceptions (if any) to the PAs/ACCOUNTS RECEIVABLE COORDINATOR's note and plan are summarized below: [] (Ivelisse HUERTAS,Mandie)
[2017-10-01 22:14] LABS: ABSOLUTE BASOPHIL COUNT 0 /CUMM (0.0-0.2); ABSOLUTE EOSINOPHIL COUNT 0.1 /CUMM (0.0-0.7); ABSOLUTE GRANULOCYTE CT 3.2 /CUMM (1.4-6.5); ABSOLUTE LYMPH COUNT 2.2 /CUMM (1.2-3.4); ABSOLUTE MONOCYTE COUNT 0.5 /CUMM (0.10-0.60); BASOPHIL % 0.6 % (0.0-2.0); EOSINOPHIL % 2.5 % (0-5); GRANULOCYTE % 52.2 % (42.2-75.2); HEMATOCRIT 36.8 % (37-47); MEAN CORPUSCULAR HGB 30.3 PG (27.0-31.0); MEAN CORPUSCULAR HGB CONC 33.9 G/DL (33.0-37.0); MEAN CORPUSCULAR VOLUME 89.4 FL (81.0-99.0); MEAN PLATELET VOLUME 9.6 FL (7.4-10.4); PLATELET COUNT 191 /CUMM (130-400); RBC DISTRIBUTION WIDTH 13.2 % (11.5-14.5); RED BLOOD CELL CT 4.12 /CUMM (4.20-5.40); WHITE BLOOD CELL COUNT 6.1 /CUMM (4.8-10.8)
--- NOTE | 2017-10-01 22:15 | CT SCAN REPORT ---
EXAMINATION: CT ABDOMEN AND PELVIS WITHOUT CONTRAST CLINICAL INFORMATION: Right lower quadrant pain COMPARISON: CT 02/11/2009 TECHNIQUE: Multidetector volumetric imaging was performed from the superior aspect of the liver through the pubic symphysis. Sagittal and coronal reformatted images were obtained on the technologist's workstation. DLP: 327 mGy-cm FINDINGS: LUNG BASES: The visualized lung bases are unremarkable. LIVER, GALLBLADDER, AND BILIARY TREE: Liver is grossly unremarkable. Punctate calcifications are noted within segment 7 of the liver, unchanged compared to 2009. The gallbladder is surgically absent. PANCREAS: Unremarkable. SPLEEN: A single splenic calcifications is present. ADRENAL GLANDS: Unremarkable. KIDNEYS AND URETERS: The kidneys are normal in size, shape, and attenuation. No hydronephrosis, hydroureter, or calculi seen. No perinephric stranding. BLADDER: Unremarkable. GASTROINTESTINAL TRACT: The small and large bowel are unremarkable. The appendix is unremarkable. ABDOMINAL WALL: No significant hernia is appreciated. LYMPH NODES: There are a few scattered normally sized mesenteric lymph nodes. VASCULAR: Grossly unremarkable on this noncontrast study. PELVIC VISCERA: The uterus and ovaries appear within normal range. No free fluid within the pelvis. OSSEOUS STRUCTURES: Unremarkable. IMPRESSION: 1. Limited noncontrast study. 2. Normal appendix. 3. No CT evidence for acute renal obstruction. 4. No acute intra-abdominal or pelvic findings. 5. Status post cholecystectomy.
[2017-10-01 22:39] VITALS: BP 129/68
[2017-10-01] MEDS ORDERED: NAPROSYN500 M1 PO (23:06)
[2017-10-01] MEDS ORDERED: ROBAXIN-750750 M1 PO (23:06)
== END 2017-10-01 23:11 ==
LOC: ERH 20:43
PROVIDERS: Physician Assistant Medical
DX: R10.9 Unspecified abdominal pain (principal); M54.5 Low back pain
CPT/HCPCS: 74176; 81001; 96372; J1885